=== PATIENT | female | born 1960 | race Caucasian/White ===

== ENCOUNTER 2019-06-20 | Emergency (ER) | payer SELFPAY ==
[~2019-06-20] MED LIST: DICLOXACILL500 MG PO; INFANRIX IM
[2019-06-20] MEDS ORDERED: TAM75CAP PO (17:33)
== END 2019-06-20 17:42 | disposition home or self-care (01) | DRG 195 ==
DX: J10.1 Influenza due to other identified influenza virus with other respiratory manifestations (principal)